=== PATIENT | female | born 1950 | race Caucasian/White ===

== ENCOUNTER 2018-02-11 06:03 | Inpatient (IN) | payer MEDICARE, BC ==
--- NOTE | 2018-01-31 20:48 | HP ---
CC: Dr. Santo Luque; Dr. Venita Estrada * ADMISSION HISTORY AND PHYSICAL: DATE OF ADMISSION: 02/11/18 ATTENDING SURGEON: Dr. Ann Marie Torres.* (DICTATED BY DEBI PRADHAN) CHIEF COMPLAINT: Primary hyperparathyroidism. HISTORY OF PRESENT ILLNESS: This is a 67-year-old generally healthy female, who has a past history of hypercalcemia dating back to 2011. She underwent workup in 2012 including a nondiagnostic SPECT/CT as well as an ultrasound of the neck. The ultrasound did show an extrinsic 1 cm mass inferior to the right lower pole thyroid. This was apparently biopsied by ultrasound-guided FNA with pathology being consistent with benign thyroid nodule (it is not clear from the report if a thyroid nodule was biopsied versus the extrinsic mass). PTH was mildly elevated at that time. In any case, in the interim, the patient did not have any lab work done until fall, at which time she was again found to have hypercalcemia. Subsequent workup included renal ultrasound, which did not show any occult kidney stones. A DEXA scan did show osteopenia. The patient was seen by Dr. Luque. She does have generalized complaint of fatigue, but no history of kidney stones. A PTH on 11/02/17 was elevated at 12 (normal being less than or equal to 9.3). Dr. Luque obtained a CT scan of the neck on 12/10/17 showing a 2 x 1.0 x 0.5 cm mass adjacent to the lower pole of the right lobe of the thyroid and located in the retrotracheal region, suspicious for parathyroid adenoma. She was seen by Dr. Torres on 01/18/18, who reviewed her history and her imaging reports. She was felt to have primary hyperparathyroidism likely related to the right lower pole parathyroid and recommendation was made for parathyroidectomy. The patient understands the indications for surgery, the risks, benefits, and alternatives and would like to proceed as scheduled with parathyroidectomy. PAST MEDICAL HISTORY: Asthma, hyperthyroidism (on replacement). PAST SURGICAL HISTORY: Tonsillectomy remotely. No reported problems. CURRENT MEDICATIONS: 1. Flovent 2 puffs once daily. 2. Albuterol MDI 2 puffs p.r.n. (uses rarely). 3. Levothyroxine 50 mcg once daily. 4. Prilosec 20 mg once daily. 5. Vitamin D3 1000 IU once daily. DRUG ALLERGIES: PENICILLIN (hives and difficulty breathing), RED DYE (hives and difficult breathing), THIMEROSAL (from contact solution) itching and burning. FAMILY HISTORY: Positive for cancer and diabetes, but negative for early onset heart disease. It is also negative for anesthesia problems, bleeding, or clotting disorders. SOCIAL HISTORY: The patient lives with her sister. She is a retired high school coach. She denies use of tobacco, alcohol, or recreational drugs. REVIEW OF SYSTEMS: General: No recent constitutional symptoms or acute illnesses other than described in the HPI. Her weight has been stable. She is due for a comprehensive exam with her PCP at the end of February. Eyes: No change in vision or other problems reported. Ears, Nose, Throat: No problems reported. She does have a partial upper denture. Cardiovascular: No chest pain, palpitations, history of heart murmur, or hypertension. Respiratory: No recent exacerbations in her asthma. No chronic cough or shortness of breath. GI: No problems reported. Last colonoscopy done in 2012, normal exam with recommended 10-year followup. : No problems reported. See also above per HPI. PROJECT MANAGER PROCESS DEVELOPMENT: Her last Pap smear and pelvic exam was approximately 10 years ago with no interval problems reported. Her last mammogram was in May 2017. She is due for a breast exam, but no interval problems by self exam. Endocrine : See above per HPI. Her TSH was normal earlier this year. She does have a few mildly elevated glucose readings from recent lab work. Neuro/Psych: No history or problems reported. PHYSICAL EXAMINATION GENERAL: Well-nourished, well-developed female, in no acute distress. VITAL SIGNS: Height 60 inches, weight 135 pounds. Blood pressure 138/76, pulse 68, respirations 16. HEENT: Pupils are equal, round, and reactive. EOMs intact. No conjunctival pallor. Oropharynx: Partial upper denture. Remaining teeth in good repair. No intraoral lesions. NECK: No palpable thyromegaly, masses, or lymphadenopathy in the cervical or supraclavicular regions. LUNGS: Clear to auscultation. No rales or wheezes. HEART: Regular rate and rhythm. No murmur noted. BREASTS: Not examined (due for comprehensive exam with PCP in the next month). ABDOMEN: Flat, soft, nondistended. No masses or organomegaly. No palpable tenderness. GENITALIA: Not done. No problems reported. RECTAL: Not done. No problems reported. BACK: No spinous process or CVA tenderness. EXTREMITIES: No edema. NEUROLOGIC: Grossly intact. SKIN: Warm and dry. No suspicious rashes or lesions. IMPRESSION: Primary hyperparathyroidism. PLAN: Parathyroidectomy. DEBI PRADHAN [id number]/[facility] #: [id number] [facility]ALTH NETWORKNiraj
[~2018-02-11 06:03] MED LIST: Buffered Lidocaine 0.9% SYRIN* 5 ML/SYR SYRINGE INTRADERM ONE; Famotidine IV* 10 MG/ML 2 ML (20 mg) IV ONE; Metoclopramide TAB* 10 MG PO ONE
[2018-02-11] MEDS ORDERED: Metoclopramide TAB* 10 MG ONE (06:05)
[2018-02-11] MEDS ORDERED: Famotidine IV* 10 MG/ML 2 ML (20 mg) ONE (06:05)
[2018-02-11] MEDS ORDERED: Artificial Tear OPHTH.OINT* 3.5 GM ONE (06:46)
[2018-02-11] MEDS ORDERED: Dexamethasone IV* 4 MG/ML 1 ML (4 MG) ONE (06:54)
[2018-02-11] MEDS ORDERED: Ondansetron ODT TAB* 4 MG ONE ×2 (06:54→14:42)
[2018-02-11] MEDS ORDERED: Phenylephrine INJ* 10 MG/ML 1 ML VIAL (10 MG) ONE (06:54)
[2018-02-11] MEDS ORDERED: Propofol* 10 MG/ML 20 ML BTL IV PUSH ONE (06:54)
[2018-02-11] MEDS ORDERED: Lidocaine 2% PF * 5 ML VIAL ONE (06:54)
[2018-02-11] MEDS ORDERED: fentaNYL* 50 MCG/ML 2 ML VIAL (100 MCG VIAL) ONE ×2 (06:55→15:24)
[2018-02-11] MEDS ORDERED: Cisatracurium* 2 MG/ML MDV 5 ML ONE (06:55)
[2018-02-11] MEDS ORDERED: Midazolam* 1 MG/ML 5 ML VIAL (5 MG) ONE (06:55)
[2018-02-11] MEDS ORDERED: Lidocain 1% EPI 1:100,000 * 30 ML MDV ONE (07:20)
[2018-02-11] MEDS ORDERED: Bupivacaine 0.5% PF 10 ML VIAL INJ ONE (07:20)
[2018-02-11] MEDS ORDERED: Naloxone* 0.4 MG/ML 1 ML VIAL IV PRN (08:58)
[2018-02-11] MEDS ORDERED: Acetaminophen IV 1GM/100ML * 1,000 MG/100 ML VIAL IVPB ONE (08:58)
[2018-02-11] MEDS ORDERED: fentaNYL* 50 MCG/ML 2 ML VIAL (100 MCG VIAL) IV PRN (08:58)
[2018-02-11] MEDS ORDERED: Ondansetron ODT TAB* 4 MG PO PRN ×2 (08:58→20:52)
[2018-02-11] MEDS ORDERED: Acetaminophen IV 1GM/100ML * 100 ML ONE (13:37)
[2018-02-11] MEDS ORDERED: HYDROcodone/ACET. 7.5/325 LIQ* 15 ML UDC PO PRN (14:04)
[2018-02-11] MEDS ORDERED: Acetaminophen ADULT LIQ* 650 MG/20.3 ML UDC PO PRN (20:52)
[2018-02-11] MEDS ORDERED: Calcium Carbonate CHEW TAB* 500 MG (TUMS) PO SCH (21:00)
[2018-02-11] MEDS: Calcium Carbonate TAB* 1250 MG (CALCIUM 500 MG) PO SCH (22:17)
[2018-02-12 07:15] VITALS: BP 120/67
[2018-02-12] MEDS: Calcium Carbonate TAB* 1250 MG (CALCIUM 500 MG) PO SCH (09:06)
--- NOTE | 2018-02-12 09:28 | PN ---
Progress Note - Progress Note Date of Service: 02/12/18 SOAP: Subjective: She is doing well without complaint-no pain Tolerating a regular breakfast, swallowing well No numbness, tingling Objective: Temp Pulse Resp BP Pulse Ox 98.4 F 85 18 120/67 97 02/12/18 07:12 02/12/18 07:12 02/12/18 07:15 02/12/18 07:12 02/12/18 07:12 PEX: Comfortable Neck incision is clean and dry, no swelling or drainage. Lungs are clear Cor is RRR Laboratory Results - last 24 hr 02/11/18 02/11/18 02/11/18 08:56 08:56 09:25 Calcium PTH Rapid 20.4 H PTH Intact 16.1 H 8.9 Calcium (PTH Intact) 9.8 9.9 02/11/18 02/11/18 02/11/18 09:25 10:48 10:48 Calcium PTH Rapid 12.2 H 8.8 PTH Intact 7.3 Calcium (PTH Intact) 9.9 02/11/18 02/11/18 02/11/18 12:14 12:14 14:08 Calcium PTH Rapid 7.1 PTH Intact 5.5 7.0 Calcium (PTH Intact) 9.4 9.7 02/11/18 02/12/18 02/12/18 19:54 02:06 08:02 Calcium 9.3 9.4 9.8 PTH Rapid PTH Intact Calcium (PTH Intact) Assessment: POD# 1 s/p parathyroidectomy-doing well with no S/S of hypocalcemia Calciums remain in normal range with oral calcium supplements Plan: D/C Home today Calcium oral supplements Office follow up arranged
--- NOTE | 2018-02-12 10:11 | OP ---
CC: Dr. Santo Luque; Dr. Venita Estrada * DATE OF OPERATION: 02/11/18 - ROOM #340 DATE OF : 48 SURGEON: Dr. Torres. ASSISTANTS: Luis Manuel and DEBI Diaz student. PRE-OP DIAGNOSIS: Hyperparathyroidism. POST-OP DIAGNOSIS: Hyperparathyroidism. OPERATIVE PROCEDURE: Parathyroidectomy. INDICATIONS: Ms. Major is a 67-year-old woman, who has been diagnosed with hyperparathyroidism, who has opted for surgical intervention after imaging studies demonstrated a probable abnormal parathyroid in the right lower pole position. DESCRIPTION OF PROCEDURE: She was brought to the operating room, placed on the OR table in the supine position and given general anesthesia. The neck was prepped and draped in the usual sterile fashion. After infiltrating with local anesthetic, an incision was made along the line that had been marked preoperatively. Subcutaneous tissue was then divided with electrocautery through the platysma muscle. Flaps were developed superiorly at the thyroid notch and inferiorly to the sternal notch. The strap muscles were then retracted laterally over the right lobe of the thyroid gland. The thyroid gland was noted to have a very minimal isthmus making it a little hard to find at first. However, it was ultimately identified and able to be retracted medially as a search was made for an abnormal parathyroid in the region of the inferior pole. Blunt dissection was used until a structure was encountered that appeared to be lymph node. This was preserved in situ. A second nodular structure was identified and thought to be possibly the abnormal parathyroid, so it was removed and held until the rapid PTH was sent. The first rapid PTH came back showing an elevation, but meanwhile a search had been made for any other abnormal glands in this region and ultimately, a quite enlarged parathyroid was identified and excised. While waiting for lab resluts, clossure was accomplished using 3-0 vicryl to reapproximate the strap muscles, 4-0 vicryl to reapproximate the platysma muscle and 4-0 prolene to close the skinn in a subcuticular fashion. Rapid PTH was sent after that and came back at 12.2 , which was higher than the initial 10.1. The incision was reopened and a search was begun for additional abnormal parathyroid tissue. It was thought that perhaps the resected gland was not a parathyroid, so a piece was sent for frozen section. This eventually did come back as parathyroid tissue. So, I suspected that this was indeed the abnormal parathyroid, but because the numbers did not drop as expected, search was made for the other abnormal parathyroid glands. A structure consistent with a normal right superior pole parathyroid was identified and a small piece was sent for frozen section. This was marked with a 4-0 silk suture. Then, a search was initiated on the left side for additional abnormal parathyroids and two nodular structures on the left side were identified that seemed consistent with normal parathyroids and small pieces were sent for frozen section from these as well. The reports eventually came back that the right-sided structure was the parathyroid. The superior pole nodule on the left side was a parathyroid, but the inferior pole nodule on the left side was a lymph node, so the search was continued for an abnormal left lower pole parathyroid. It should be mentioned that the location of the left upper pole parathyroid was marked with a 4-0 silk suture. The left lower pole nodule was also marked with a suture, but this was removed when the report came back that it was not parathyroid tissue. Meanwhile, it should be mentioned that rapid PTH from that time was sent and although it dropped some more, it did not drop as expected and so the search was indeed continued. Both carotid sheaths were opened, the retrotracheal regeon was explored, as well as the thymus. However, after several hours of searching, no other abnormal parathyroidal tissue became apparent. At this point, it was elected to discontinue the operation reasoning that, as the abnormal parathyroid would have been on the left side and no abnormal parathyroid was found, it was possible that either the adenomatous gland had been removed and the PTH numbers were slower than usual to drop, or that the if the fourth gland was abnormal, it was possibly in a location that was not accessible from the current approach. The final rapid PTH that was sent came back again further decreased, but still not half of the initial rapid PTH. Closure was then accomplished. This was done with 3-0 Vicryl to reapproximate the strap muscles, 4-0 Vicryl to reapproximate the platysma muscle, and the skin was closed with 4-0 Prolene in a subcuticular fashion. Steri-Strips and dry fluffy dressing were applied. All sponge and instrument counts were correct. The patient tolerated the procedure well and was transferred to Recovery in a stable condition. [id number]/[facility] #: [id number] FELICITYD
== END 2018-02-12 10:20 | disposition home or self-care (01) | DRG 627 ==
LOC: OR 06:03 → SSU 15:29
PROVIDERS: ADMIT Surgery; ATTEND Surgery
PROC: 07B20ZZ Excision of Left Neck Lymphatic, Open Approach (ICD-10-PCS; 2018-02-11)
PROC: 0GTR0ZZ Resection of Parathyroid Gland, Open Approach (ICD-10-PCS; principal; 2018-02-11 07:30)
DX: E21.0 Primary hyperparathyroidism (principal); J45.909 Unspecified asthma, uncomplicated; E05.20 Thyrotoxicosis with toxic multinodular goiter without thyrotoxic crisis or storm; M85.80 Other specified disorders of bone density and structure, unspecified site; K21.9 Gastro-esophageal reflux disease without esophagitis; Z88.0 Allergy status to penicillin; Z91.041 Radiographic dye allergy status; Z83.3 Family history of diabetes mellitus; Z79.890 Hormone replacement therapy
CPT/HCPCS: 36415; 82310; 83970; 88305; 88331; A9270-GY; J1100; J2250; J2704; J3010